=== PATIENT | female | born 1995 | race Caucasian/White ===

== ENCOUNTER 2016-10-25 10:42 | Emergency (ER) | payer OTHER | END 2016-10-25 11:49 | disposition left against medical advice (07) | LOC: UCCORT 10:42 | DX: R05 Cough (principal); H92.09 Otalgia, unspecified ear; Z53.29 Procedure and treatment not carried out because of patient's decision for other reasons ==

== ENCOUNTER 2016-10-25 12:58 | Emergency (ER) | payer OTHER ==
[2016-10-25 16:23] VITALS: BP 134/72
--- NOTE | 2016-10-25 16:37 | UC ---
Respiratory Complaint HPI - HPI Summary HPI Summary: URI for 1 week now has bilateral ear pain and sinus pain and congestion - History of Current Complaint Chief Complaint: UCEar Stated Complaint: COUGH,EARS,VOMITING Time Seen by Provider: 10/25/16 16:28 Hx Obtained From: Patient Hx Last Menstrual Period: 10/24/16 ?: No Onset/Duration: Gradual Onset, Lasting Days - 7 Timing: Constant Severity Initially: Mild Severity Currently: Moderate Pain Intensity: 6 Pain Scale Used: 0-10 Numeric Character: Cough: Nonproductive Alleviating Factors: OTC Meds Associated Signs And Symptoms: Positive: URI, Nasal Congestion, Sinus Discomfort - Allergies/Home Medications Allergies/Adverse Reactions: Allergies Allergy/AdvReac Type Severity Reaction Status Date / Time Benzonatate [From Tessalon] Allergy Severe throat Verified 10/25/16 16:24 closes PMH/Surg Hx/FS Hx/Imm Hx Previously Healthy: Yes Endocrine History Of: Denies: Diabetes - Surgical History Surgical History: Yes Surgery Procedure, Year, and Place: hernia repair - Family History Known Family History: Positive: Hypertension - Social History Occupation: Employed Full-time - [employer] Lives: With Family Alcohol Use: Rare Substance Use Type: None Smoking Status (MU): Current Every Day Smoker Type: Cigarettes Amount Used/How Often: 1/2 PPD Length of Time of Smoking/Using Tobacco: started age 14 Have You Smoked in the Last Year: Yes Household Exposure Type: Cigarettes Cessation Counseling: Counseled 3+Min - 10 Min Review of Systems Constitutional: Fatigue Skin: Negative Eyes: Negative ENT: Sore Throat, Ear Ache, Nasal Discharge Respiratory: Cough Cardiovascular: Negative Gastrointestinal: Negative Genitourinary: Negative Motor: Negative Neurovascular: Negative Musculoskeletal: Negative Neurological: Negative Psychological: Negative All Other Systems Reviewed And Are Negative: Yes Physical Exam Triage Information Reviewed: Yes Appearance: Well-Nourished, Ill-Appearing - mild, Pain Distress - mild Vital Signs: Initial Vital Signs Temp 97.9 F 10/25/16 16:18 Pulse 84 10/25/16 16:18 Resp 16 10/25/16 16:18 BP 134/72 10/25/16 16:18 Pulse Ox 95 10/25/16 16:18 Vital Signs Reviewed: Yes Eye Exam: Normal Eyes: Positive: Conjunctiva Clear ENT Exam: Normal ENT: Positive: Hearing grossly normal, Pharynx normal, Nasal congestion, Nasal drainage, TMs normal - right, TM bulging - left. Negative: Tonsillar swelling, Tonsillar exudate, Trismus, Muffled/hoarse voice Neck exam: Normal Neck: Positive: Supple, Nontender, No Lymphadenopathy Respiratory Exam: Normal Respiratory: Positive: Chest non-tender, Lungs clear, Normal breath sounds, No respiratory distress, No accessory muscle use Cardiovascular Exam: Normal Cardiovascular: Positive: RRR, No Murmur, Pulses Normal, Brisk Capillary Refill Musculoskeletal Exam: Normal Musculoskeletal: Positive: Strength Intact, ROM Intact, No Edema Neurological Exam: Normal Neurological: Positive: Alert, Muscle Tone Normal Psychological Exam: Normal Skin Exam: Normal UC Diagnostic Evaluation - Laboratory O2 Sat by Pulse Oximetry: 95 Respiratory Course/Dx - Course Course Of Treatment: Amoxicillin, Ibuprofen, flonase, increase fluids, follow with pcp re-check prn - Differential Dx/Diagnosis Differential Diagnosis/HQI/PQRI: Asthma, Influenza, Lower Resp Infection, Sinusitis Provider Diagnoses: Sinusitis Discharge - Discharge Plan Condition: Stable Disposition: HOME Prescriptions: Amoxicillin (*) 875 mg PO BID #20 tab Fluticasone NASAL SPRAY 50MCG* [Flonase NASAL SPRAY 50MCG*] 2 spray BOTH NARES DAILY #1 btl Patient Education Materials: Fluticasone (Into the nose), Amoxicillin (By mouth ), How to Use Nasal [place] (ED), Upper Respiratory Infection (ED) Forms: *Work Release Referrals: Non Staff,Doctor [Primary Care Provider] - [facility] [Outside]
== END 2016-10-25 16:54 | disposition home or self-care (01) ==
LOC: UCCORT 12:58
DX: J32.9 Chronic sinusitis, unspecified (principal); F17.210 Nicotine dependence, cigarettes, uncomplicated; Z88.8 Allergy status to other drugs, medicaments and biological substances
CPT/HCPCS: 99212; G0463

== ENCOUNTER 2017-05-14 21:03 | Emergency (ER) | payer SELFPAY ==
[2017-05-14 21:22] VITALS: BP 138/75
[2017-05-14] MEDS ORDERED: Famotidine TAB* 20 MG PO ONE (21:38)
[2017-05-14] MEDS ORDERED: diPHENhydraMINE PO* 50 MG PO ONE (21:38)
[2017-05-14] MEDS ORDERED: methylPREDNISolone 125 MG* 2 ML VIAL IM ONE (21:38)
--- NOTE | 2017-05-14 21:50 | UC ---
Skin Complaint HPI - HPI Summary HPI Summary: THREE DAYS AGO HAD MILD HEADACHES AND BODY ACHES, SYMPTOMS RESOLVED; 45 MINUTES AGO DEVELOPED SUDDEN BILATERAL DIFFUSE SPOTTED RASH ON TORSO AND BUTTOCKS. NO FEVER. NO RECENT TICK BITES. NO NEW MEDICATION. NO SORE THROAT. NO WEAKNESS. NO LYMPH NODE ENLARGEMENT. NO THROAT TIGHTENING. NO SOB. NO NEW FOODS. NO NEW DETERGENTS. NO NEW PLANT OR PET EXPOSURE. WORKS IN GROUP HOME. NO COUGH. - History of Current Complaint Chief Complaint: UCSkin Time Seen by Provider: 05/14/17 21:29 Stated Complaint: RASH Hx Obtained From: Patient Hx Last Menstrual Period: 05/12/17 Onset/Duration: Sudden Onset, Lasting Minutes, Still Present Skin Exposure Onset/Duration: Minutes Ago Onset Severity: Mild Current Severity: Moderate Location: Diffuse - TORSO AND BUTTOCKS Character: Pruritus, Redness, Raised Aggravating: Nothing Alleviating: Nothing Associated Signs & Symptoms: Positive: Rash. Negative: Nausea, Vomiting, Numbness, Fever, Chills, Cough, Chest Pain, Hoarseness, Throat Tightening, Syncope, Drainage, Bruising, Tenderness, Red Streaks Related History: Possible Reaction to: Food, Possible Reaction to: Environmental Exposure, Closed Enviornment - Allergy/Home Medications Allergies/Adverse Reactions: Allergies Allergy/AdvReac Type Severity Reaction Status Date / Time Benzonatate [From Tessalon] Allergy Severe throat Verified 05/14/17 21:12 closes Home Medications: Home Medications Levonorgestrel (Iud) [Mirena IUD] 20 mcg IU ONCE 05/14/17 [History Confirmed ] Review of Systems Constitutional: Negative Skin: Rash Eyes: Negative ENT: Negative Respiratory: Negative Cardiovascular: Negative Gastrointestinal: Negative Genitourinary: Negative Motor: Negative Neurovascular: Negative Musculoskeletal: Negative Neurological: Negative Psychological: Negative All Other Systems Reviewed And Are Negative: Yes PMH/Surg Hx/FS Hx/Imm Hx Previously Healthy: Yes - Surgical History Surgical History: Yes Surgery Procedure, Year, and Place: hernia repair - Family History Known Family History: Positive: Hypertension - Social History Occupation: Employed Full-time Lives: With Family Alcohol Use: Occasionally Substance Use Type: None Smoking Status (MU): Current Every Day Smoker Type: Cigarettes Amount Used/How Often: 1/2 PPD Length of Time of Smoking/Using Tobacco: started age 14 Have You Smoked in the Last Year: Yes Household Exposure Type: Cigarettes Cessation Counseling: Patient Advised to Stop Physical Exam Triage Information Reviewed: Yes Appearance: Well-Appearing, No Pain Distress, Well-Nourished Vital Signs: Initial Vital Signs Temp 98.4 F 05/14/17 21:07 Pulse 88 05/14/17 21:07 Resp 15 05/14/17 21:07 BP 138/75 05/14/17 21:07 Pulse Ox 99 05/14/17 21:07 Vital Signs Reviewed: Yes Eye Exam: Normal ENT Exam: Normal ENT: Positive: Normal ENT inspection, Hearing grossly normal, Pharynx normal, TMs normal Dental Exam: Normal Neck exam: Normal Neck: Positive: Supple, Nontender, No Lymphadenopathy Respiratory Exam: Normal Respiratory: Positive: Chest non-tender, Lungs clear, Normal breath sounds, No respiratory distress, No accessory muscle use Cardiovascular Exam: Normal Cardiovascular: Positive: RRR, No Murmur, Pulses Normal, Brisk Capillary Refill Abdominal Exam: Normal Abdomen Description: Positive: Nontender, No Organomegaly Musculoskeletal Exam: Normal Musculoskeletal: Positive: Strength Intact, ROM Intact Neurological Exam: Normal Skin: Positive: rashes - DIFFUSE ON BILATERAL FLANKS OF TORSO AND BUTTOCKS ERRYTHEMATOUS MACULAR RASH WITH LESIONS AVERAGE 1CM X 1CM Course/Dx - Course Course Of Treatment: PATIENT ADVISED TO SEEK CARE AT ED IF NEW SYMPTOMS DEVELOP ; ADVISED TO FOLLOW UP AT DERM IF SYMPTOMS CONTINUE AFTER 3 DAYS - Differential Diagnoses - Skin Complaint Differential Diagnoses: Contact Dermatitis, Drug Rash, Electrolyte Abnormality, Endocrine Abnormality, Erythema Nodosum, Local Allergic Reaction, Scabies, [place], Systemic Illness, Tick Born Illness, Tinea, Viral Exanthem, VRE - Diagnoses Provider Diagnoses: CONTACT DERMATITIS Discharge - Discharge Plan Condition: Stable Disposition: HOME Prescriptions: predniSONE TAB* [Deltasone TAB*] 10 mg PO DAILY #28 tab Patient Education Materials: Contact Dermatitis (ED) Forms: *Work Release Referrals: [facility] [[facility]] Rosalia Munoz [Medical Doctor] - Non Staff,Doctor [Primary Care Provider] - Images Front/Back of Body, Lg (Weld): 1 - DIFFUSE ON BILATERAL FLANKS OF TORSO AND BUTTOCKS ERRYTHEMATOUS MACULAR RASH WITH LESIONS AVERAGE 1CM X 1CM 2 - DIFFUSE ON BILATERAL FLANKS OF TORSO AND BUTTOCKS ERRYTHEMATOUS MACULAR RASH WITH LESIONS AVERAGE 1CM X 1CM 3 - DIFFUSE ON BILATERAL FLANKS OF TORSO AND BUTTOCKS ERRYTHEMATOUS MACULAR RASH WITH LESIONS AVERAGE 1CM X 1CM 4 - DIFFUSE ON BILATERAL FLANKS OF TORSO AND BUTTOCKS ERRYTHEMATOUS MACULAR RASH WITH LESIONS AVERAGE 1CM X 1CM
== END 2017-05-14 21:59 | disposition home or self-care (01) ==
LOC: UCCORT 21:03
DX: Z72.0 Tobacco use (principal); L25.9 Unspecified contact dermatitis, unspecified cause
CPT/HCPCS: 96372; 99212; A9270-GY; G0463; J2930

== ENCOUNTER 2017-10-12 10:24 | Emergency (ER) | payer SELFPAY ==
--- OUTSIDE RECORDS SUMMARY | 2017-10-12 10:57 | XMS REPORT ---
:1995 External Reference #:[id number] Author Organization [facility] Address [address] [place] [address] Phone [phone] Care Team Providers Name Role Phone Billy Wagoner PA Care Team Information Lab Scientist Unavailable Payers Type Date Identification Numbers Payment Provider Subscriber Commercial Effective: Policy Number: [id number] [facility] [place] 2017 PayID: [id number] [address] [place] [address] [facility] Policy Number: [id number] Medicaid/[employer] [place] PayID: [id number] [address] [place] [address] Problems Description No Information Family History Date Family Member(s) Problem(s) Comments General No Current Problems Father No Current Problems Mother No Current Problems Children 2 Siblings 5 Social History Type Date Description Comments Marital Status Legal Status: Never Work Status Part-Time Employment ETOH Use Occasionally consumes alcohol Smoking Light tobacco smoker (10 or fewer cigarettes/day) Recreational Drug Use Denies Drug Use Daily Caffeine Consumes on average 1 cup of regular coffee per day Allergies, Adverse Reactions, Alerts Date Description Reaction Status Severity Comments 08/18/2017 NKDA active Medications Medication Date Status Form Strength Qnty SIG Indications Ordering Provider Sertraline HCL 09/16/19 Active Tablets 50mg 30tabs take one F33.9 Rafat , 18 tablet by Aury Ashton mouth one M.D. time daily F41.9 Diclofenac 08/18/[address] 75mg 60tabs 1 by mouth S22.41xA Rafat, Sodium twice a Ahmad M., day as M.D. needed S70.11xA Cyclobenzaprine HCL 08/18/2017 Active Tablets 10mg 90tabs 1 tab by S22.41xA Rafat, mouth Ahmad M., three M.D. times a day as needed S70.11xA Fluticasone Active Suspension 50mcg/Act instill 2 J30.9 Unknown Propionate sprays into each nostril once daily Sertraline HCL 08/18/2017 - Hx Tablets 25mg 30t 1 Tab PO F33.9 Rafat, 09/16/2017 abs Daily Aury Ashton M.D. F41.9 Amoxicillin - 08/18/2017 Hx Tablets 875mg take 1 tablet by Unknown mouth twice a day Vital Signs Date Vital Result Comment 09/16/2017 BP Systolic 114 mmHg BP Diastolic 62 mmHg Height 64 inches 5'4" Weight 177.00 lb BMI (Body Mass Index) 30.4 kg/m2 Heart Rate 91 /min Respiratory Rate 16 /min 08/18/2017 BP Systolic 116 mmHg BP Diastolic 60 mmHg Height 64 inches 5'4" Weight 184.00 lb BMI (Body Mass Index) 31.6 kg/m2 Heart Rate 119 /min Body Temperature 97.4 F Respiratory Rate 16 /min Results Description No Information Procedures Date CPT Code Description Status 08/18/2017 96856 Audiometry, Bekesy, Screening Completed Encounters Type Date Location Provider CPT E/M Dx Office Visit 09/16/2017 11:00[place] [address] F33.9 F41.9 S22.41xA V89.2xxS J30.9 L20.9 S70.11xA F17.200 H53.30 E66.01 Office Visit 08/18/2017 9:00[place] [address] F33.9 F41.9 S22.41xA V89.2xxS J30.9 L20.9 S70.11xA Z00.01 F17.200 H53.30 E66.01 Z68.31 Plan of Care Future Appointment(s):10/17/2017 1:45 pm - Billy Wagoner PA at [facility]
[2017-10-12 11:54] VITALS: BP 127/62
--- NOTE | 2017-10-12 12:10 | UC ---
Respiratory Complaint HPI - HPI Summary HPI Summary: Pt c/o fever, nasal congestion, cough, "burning chest" generalized malaise X 2 weeks. - History of Current Complaint Chief Complaint: UCGeneralIllness Stated Complaint: EAR PAIN,CHEST CONGESTION Time Seen by Provider: 10/12/17 12:02 Hx Obtained From: Patient Hx Last Menstrual Period: mirena ?: No Onset/Duration: Gradual Onset, Lasting Weeks - 2, Still Present, Worse Since - onset Timing: Constant Severity Initially: Mild Severity Currently: Mild Pain Intensity: 0 Character: Cough: Nonproductive Aggravating Factors: Exertion, Deep Breaths, Recumbent Position Alleviating Factors: Nothing Associated Signs And Symptoms: Positive: Fever, Chills, Wheezing, URI, Nasal Congestion - Risk Factors Pulmonary Embolism Risk Factors: Estrogen - Mirena, Smoking Cardiac Risk Factors: Smoking Pseudomonas Risk Factors: Negative Tuberculosis Risk Factors: Smoking - Allergies/Home Medications Allergies/Adverse Reactions: Allergies Allergy/AdvReac Type Severity Reaction Status Date / Time Benzonatate [From Tessalon] Allergy Severe throat Verified 10/12/17 11:54 closes PMH/Surg Hx/FS Hx/Imm Hx Previously Healthy: Yes - Surgical History Surgical History: Yes Surgery Procedure, Year, and Place: hernia repair - Family History Known Family History: Positive: Hypertension - Social History Occupation: Employed Full-time Lives: With Family Alcohol Use: Rare Substance Use Type: None Smoking Status (MU): Current Every Day Smoker Type: Cigarettes Amount Used/How Often: 1/2 PPD Length of Time of Smoking/Using Tobacco: started age 14 Have You Smoked in the Last Year: Yes Household Exposure Type: Cigarettes - Immunization History Vaccination Up to Date: No Review of Systems Constitutional: Fever, Chills, Fatigue Skin: Negative Eyes: Negative ENT: Sinus Congestion Respiratory: Shortness Of Breath - with exertion, Cough Cardiovascular: Negative Gastrointestinal: Negative Genitourinary: Negative Motor: Negative Neurovascular: Negative Musculoskeletal: Myalgia Neurological: Headache Psychological: Negative Is Patient Immunocompromised?: No All Other Systems Reviewed And Are Negative: Yes Physical Exam Triage Information Reviewed: Yes Appearance: Well-Appearing Vital Signs: Initial Vital Signs Temp 98.5 F 10/12/17 11:50 Pulse 85 10/12/17 11:50 Resp 20 10/12/17 11:50 BP 127/62 10/12/17 11:50 Pulse Ox 100 10/12/17 11:50 Vital Signs Reviewed: Yes Eye Exam: Normal ENT Exam: Other ENT: Positive: Nasal congestion Dental Exam: Normal Neck exam: Normal Respiratory Exam: Other Respiratory: Positive: Rhonchi - mild Cardiovascular Exam: Normal Musculoskeletal Exam: Normal Neurological Exam: Normal Psychological Exam: Normal Skin Exam: Normal UC Diagnostic Evaluation - Laboratory O2 Sat by Pulse Oximetry: 100 Respiratory Course/Dx - Differential Dx/Diagnosis Differential Diagnosis/HQI/PQRI: Bronchitis, Influenza, Pulmonary Embolism Provider Diagnoses: Bronchitis Discharge - Discharge Plan Condition: Stable Disposition: HOME Prescriptions: Azithromycin TAB* [Zithromax TAB (Z-MINDI) 250 mg #6 tabs] 2 tab PO .TODAY, THEN 1 DAILY #1 mindi predniSONE TAB* [Deltasone TAB*] 30 mg PO DAILY #9 tab Pseudoephedrine-Guaifenesin [Mucinex D 60-600 mg] 1 tab PO DAILY #5 tab Patient Education Materials: Acute Bronchitis (ED) Referrals: Non Staff,Doctor [Primary Care Provider] - If Needed
== END 2017-10-12 12:17 | disposition home or self-care (01) ==
LOC: UCCORT 10:24
DX: J40 Bronchitis, not specified as acute or chronic (principal); Z88.8 Allergy status to other drugs, medicaments and biological substances; F17.210 Nicotine dependence, cigarettes, uncomplicated
CPT/HCPCS: 99212; G0463

== ENCOUNTER 2019-01-30 18:57 | Emergency (ER) | payer SELFPAY ==
--- OUTSIDE RECORDS SUMMARY | 2019-01-30 19:10 | XMS REPORT | Continuity of Care Document ---
:1995 External Reference #:[id number] Author Name Melanie Zamora NP Address [address] [place] [address] Care Team Providers Name Role Phone Yes Primary Care Physician Unavailable Payers Date Identification Numbers Payment Provider Subscriber Effective: 2018 Policy Number: [id number] [facility] [employer] Name: [place]/Managed Medicaid [address] PayID: [id number] [place] [address] Policy Number: [id number] Medicaid -[place]rin [place] PayID: [id number] [address] [place] [id number] Expires: 2017 Policy Number: [id number] Medicaid Pe ([facility]) [place] PayID: [id number] [address] [place] [id number] Family History Date Family Member(s) Observation Comments Father Alive Mother Alive Social History Type Date Description Comments Sex Female Education 9th grade Marital Status Legal Status: Never Work Status Full-Time Employment Tobacco Use Reviewed: Never Smoked Cigars 01/27/19 Tobacco Use Reviewed: Never Smoked A Pipe 01/27/19 Smoking Status Reviewed: Never Smoked A Pipe 01/27/19 Tobacco Use Reviewed: Never Used Smokeless 01/27/19 Tobacco Tobacco Use Reviewed: Light tobacco smoker (10 01/27/19 or fewer cigarettes/day) Tattoo/Piercing Tattoo all professionally done. Tattoo/Piercing Pierced ears Sun Exposure Does not use sunscreen Contraceptive Methods Past methods include ; Nuva Ring depo-provera injection Contraceptive Methods 01/27/2019 Past methods include levonorgestrel IUD Contraceptive Methods Past methods include oral contraceptives Contraceptive Methods Past methods include Nexplanon Age 1st Callender 15 Years Old STD's Chlamydia 11/27/11 UNKNOWN 01/27/2019 Never E-Cigarette user Allergies, Adverse Reactions, Alerts Description No Known Drug Allergies Medications Active Medications SIG Qnty Indications Ordering Provider Date Metronidazole one tab by 14tabs N76.0 Melanie Zamora, 01/27/2019 500mg Tablets mouth twice SEGMENT PRODUCER daily x 7 days no etoh Ortho Tri-Cyclen Lo 1 by mouth 84tabs Z30.011 Melanie Zamora, 03/13/2018 every day SEGMENT PRODUCER 0.18/0.215/0.25 mg-25 mcg Tablets Womens Daily Formula Unknown History Medications Mirena (52 MG) one device Melanie Zamora, 03/13/2018 - intrauterine SEGMENT PRODUCER 01/27/2019 20mcg/24HR IUD Macrobid one capsule by 14caps N39.0 Melanie Zamora, 03/13/2018 - 100mg mouth twice a day x SEGMENT PRODUCER 01/27/2019 Capsules 7 days Vitamin one tablet per day 90tabs Z31.69 Melanie Zamora, 2017 - SEGMENT PRODUCER 01/27/2019 Tablets No Active Unknown 11/20/2017 - Medications 11/20/2017 Metronidazole one tab by mouth 14tabs N76.0 Melanie Zamora, 11/20/2017 - 500mg twice daily x 7 SEGMENT PRODUCER 03/13/2018 Tablets days no etoh No Active Unknown 11/03/2014 - Medications 11/03/2014 Metronidazole 1 tab by mouth 14tabs 616.10 Zehra Moeller, SEGMENT PRODUCER 11/03/2014 - 500mg twice a day 11/20/2017 Tablets Medications Administered in Office Medication SIG Qnty Indications Ordering Provider Date Plan B One-Step take one tab 1tabs Z30.012 Melanie Zamora, GELY 01/27/2019 1.5mg today Tablets Plan B One-Step take one tab 1tabs Z30.012 Melanie Zamora, GELY 03/13/2018 1.5mg today Tablets Contraceptive Pills Melanie Zamora, GELY 03/13/2018 Control Injection Emergency Contraceptive Melanie Zamora, GELY 03/13/2018 Injection Vital Signs Date Vital Result Comment 01/27/2019 1:23pm Height 64 inches 5'4" Weight 183.00 lb BMI (Body Mass Index) 31.4 kg/m2 03/13/2018 12:05pm BP Systolic 120 mmHg BP Diastolic 80 mmHg Height 65 inches 5'5" Weight 188.00 lb BMI (Body Mass Index) 31.3 kg/m2 11/20/2017 11:53am BP Systolic 120 mmHg BP Diastolic 71 mmHg Height 65 inches 5'5" Weight 182.00 lb BMI (Body Mass Index) 30.3 kg/m2 11/03/2014 10:42am BP Systolic 100 mmHg BP Diastolic 70 mmHg Height 65 inches 5'5" Weight 172.00 lb BMI (Body Mass Index) 28.6 kg/m2 Last Menstrual Period [id number] Results Test Date Facility Test Result H/L Range Note Laboratory test 01/27/2019 [facility] Test neg finding Urine..... Wet Prep.... 01/27/2019 [facility] WBC Smear 0 Clue Cells Vag Fluid Wet Prep many Priyanka Wet Prep few Lactobacillus Wet Prep few Whiff Wet Prep neg. Bacteria Wet Prep n/a PH Wet Prep 7.5 Misc Other Test no trich seen [facility] GN24 Susceptibility 03/13/2018 [facility] Amoxicillin/Clavulanic Acid S (< =2) Org 1 Ampicillin S (<=2) Ampicillin/Sulbact S (<=2) Cefepime S (<=1) Ceftazidime S (<=1) Ceftriaxone S (<=1) Ciprofloxacin S (<=0.25) Ertapenem S (<=0.5) Gentamicin S (<=1) Imipenem S (<=0.25) Levofloxacin S (<=0.12) Nitrofurantoin S (<=16) Piperacillin/Tazobactam S (<=4) Tobramycin S (<=1) Trimethoprim/Sulfa S (<=20) 1 Chlamydia/N 03/13/[address] [facility] [address],Rna,Tma,Urogenital NOT DETECTED Not Detected 2 Gonorroeae Rna Tma Urogenit GC Rna,Tma,Urogen NOT DETECTED Not Detected 3 Urinalysis DIP Only.... 03/13/2018 [facility] Urine Leukocyte Esterase QN + Urine Nitrite QN + Urine Blood N Urine PH 5.0 Urine Protein Random N Urine Ketone Random N Urine Glucose QN Random N Culture,Urine,Voided 03/13/2018 [facility] URINE Preliminary Report SEE NOTE 4 Organism #1 SEE NOTE Abnormal 5 Wet Prep.... 03/13/2018 [facility] WBC Smear 0 Clue Cells Vag Fluid Wet Prep 0 Priyanka Wet Prep 0 Lactobacillus Wet Prep few Whiff Wet Prep neg. Bacteria Wet Prep n/a PH Wet Prep 4.5 Misc Other Test no trich seen Wet Prep.... 11/20/2017 [facility] WBC Smear few Clue Cells Vag Fluid Wet Prep many Priyanka Wet Prep 0 Lactobacillus Wet Prep many Whiff Wet Prep + Bacteria Wet Prep n/a PH Wet Prep 7.5 Misc Other Test no trich seen Thinprep Pap Field Installation Technician 11/20/2017 [facility] Results neg./bv/no ez 6 W/RFX HPV HR Chlam 11/20/2017 [facility] C.Trachomatis NOT DETECTED Not Detected 7 Trach/Neisseria Rna,Tma Gonorroeae Rna Tma N.Gonorrhoeae Rna,Tma NOT DETECTED Not Detected 8 Urinalysis DIP Only.... 11/20/2017 [facility] Urine Leukocyte Esterase QN N Urine Nitrite QN N Urine Blood N Urine PH 7.5 Urine Protein Random N Urine Ketone Random N Urine Glucose QN Random N Laboratory test 11/03/2014 [facility] C.Trachomatis NOT DETECTED Not Detected 9 finding Rna,Tma W/RFX N.Gonorrhoeae Rna,Tma Wet Prep.... 11/03/2014 [facility] WBC Smear 6-10 Clue Cells Vag Fluid Wet Prep + Priyanka Wet Prep neg Lactobacillus Wet Prep neg Whiff Wet Prep + Bacteria Wet Prep ++ PH Wet Prep 5.0 [place] Annual Lab Set 11/03/2014 [facility] HGB Blood.... 15.4 Urinalysis DIP Only.... 11/03/2014 [facility] Urine Leukocyte Esterase QN + Urine Nitrite QN N Urine Blood N Urine PH 5 Urine Protein Random Tr Urine Ketone Random N Urine Glucose QN Random N 1 ( )=MINIMUM INHIBITORY CONCENTRATION IN MCG/ML 2 This test was performed using the APTIMA COMBO2(R) Assay (GEN-PROBE(R). The analytical performance characteristics of this assay, when used to test SurePath(R) specimens have been determined by [facility]. 3 This test was performed using the APTIMA COMBO2(R) Assay (GEN-PROBE(R). The analytical performance characteristics of this assay, when used to test SurePath(R) specimens have been determined by [facility]. 4 GRAM NEGATIVE BACILLI GREATER THAN 100,000 CFU/ML IDENTIFICATION AND SUSCEPTIBILITIES TO FOLLOW. 5 ESCHERICHIA COLI GREATER THAN 100,000 CFU/ML 6 GYNECOLOGICAL CYTOLOGY REPORT Thinprep TIS PAP w/rfx to HPV E6/E7 REPORT STATUS: FINAL CLINICAL INFORMATION: Routine exam SLIDES / SOURCE: 1 / Information not provided STATEMENT OF ADEQUACY: Satisfactory for evaluation. Endocervical/transformation zone component absent. INTERPRETATION/RESULT: Negative for intraepithelial lesion or malignancy. Shift in vaginal vivienne suggestive of bacterial vaginosis. COMMENT: This Pap test has been evaluated with computer assisted technology. TECHNICAL TRAINING COORDINATOR: LEXI GLASS(ASCP) For informational Purposes: All cytology specimens are processed and screened at [facility]. [address] [place] [id number] 7 This test was performed using the APTIMA COMBO2(R) Assay (GEN-PROBE(R). The analytical performance characteristics of this assay, when used to test SurePath(R) specimens have been determined by [facility]. 8 This test was performed using the APTIMA COMBO2(R) Assay (GEN-PROBE(R). The analytical performance characteristics of this assay, when used to test SurePath(R) specimens have been determined by [facility]. 9 This test was performed using the APTIMA COMBO2(R) Assay (GEN-PROBE(R). The analytical performance characteristics of this assay, when used to test SurePath(R) specimens have been determined by [facility]. Procedures Date Code Description Status 03/13/2018 80441 Remove Intrauterine Device Completed Encounters Type Date Location Provider Dx Diagnosis Office Visit 03/13/2018 MARIO Zamora NP Z30.431 Encounter for routine 12:00p checking of intrauterine contracep dev Z30.012 Encounter for prescription of emergency contraception Z30.011 Encounter for initial prescription of contraceptive pills Z31.69 Encounter for oth general coun and advice on procreation N39.0 Urinary tract infection, site not specified Z11.3 Encntr screen for infections w sexl mode of transmiss Z13.1 Encounter for screening for diabetes mellitus Z13.9 Encounter for screening, unspecified Z30.40 Encounter for surveillance of contraceptives, unspecified Z30.432 Encounter for removal of intrauterine contraceptive device Plan of Treatment Future Appointment(s):02/11/2019 10:30 am - SEGMENT PRODUCER at [facility]01/27/2019 - Melanie Zamora, NPZ30.012 Encounter for prescription of emergency contraceptionNew Medication:Plan B One-Step 1.5 mg - take one tab todayComments:UPIC yesterday. UPT negative today. Administered Plan B today in office. Reviewed use of, side effects and precautions with patient who states understanding. RTO in 2 weeks for UPT.Z30.41 Encounter for surveillance of contraceptive pillsComments: Patient to continue on ocp. Reviewed use of, side effects and precautions with patient who states understanding. Advised her to check the expiration date on her pills and to call if they are . She would really like an IUD. She is interested in the [facility]. Advised her to continue OCP and use condoms consistently x 2 weeks then she can RTO for UPT and possible IUD insertion.Follow up:2 weeks UPT in [place] lrgnnbbtdN96.22 Unspecified lump in the left breast, upper inner quadrantNew Xrays:US, Breast, Unilateral, Incl Axilla When Performed, Complete, Ordered: 01/27/19Comments:obtain a breast ultrasound to mretzckwC48.0 Acute vaginitisNew Medication:Metronidazole 500 mg - one tab by mouth twice daily x 7 days no etohComments:Multiple clue cells on wet prep. Rx metronidazole- reviewed use of, side effects and precautions ( including no etoh) with patient who states understanding. Instructed patient on pelvic rest x 2 weeks.Z32.02 Encounter for test, result qqkrmaxtH42.3 Encounter for screening for infections with a predominantlyNew Labs:Chlamydia/N Gonorroeae Rna Tma Urogenit, Ordered: 01/27/19Comments:Reviewed STD risks and prevention with patient. Patient states understanding.R21 Rash and other nonspecific skin eruptionNew Labs:Herpes Simplex Virus Culture W/RFX Type, Ordered: 01/27/19Comments:Likely healing acne. HSV cx obtained.Z12.4 Encounter for screening for malignant neoplasm of cervixNew Labs:Thinprep Pap Field Installation Technician W/ RFX HPV HR, Ordered: 01/27/19
--- NOTE | 2019-01-30 19:23 | UC ---
Throat Pain/Nasal Romel HPI - HPI Summary HPI Summary: C/O sore throat with headache x 3 days. No cough or congestion. No one else at home is sick - History of Current Complaint Chief Complaint: UCGeneralIllness Stated Complaint: SORE THROAT Time Seen by Provider: 01/30/19 19:12 Hx Obtained From: Patient Hx Last Menstrual Period: 12/28/18 ?: No Onset/Duration: Sudden Onset, Lasting Days - 3, Still Present Severity: Moderate Pain Intensity: 7 Cough: None Associated Signs & Symptoms: Positive: Dysphagia. Negative: Wheezing, Hoarseness, Sinus Discomfort, Vomiting - Allergies/Home Medications Allergies/Adverse Reactions: Allergies Allergy/AdvReac Type Severity Reaction Status Date / Time benzonatate Allergy Severe Airway Verified 01/30/19 19:13 Obstruction MS Benzonatate Allergy Severe throat Verified 01/30/19 19:13 [From Tessalon] closes Home Medications: Home Medications Oral Contraceptives DAILY 01/30/19 [History] metroNIDAZOLE * [Flagyl] 500 mg PO BID 01/30/19 [History Confirmed 01/30/19] PMH/Surg Hx/FS Hx/Imm Hx Previously Healthy: Yes - Surgical History Surgical History: Yes Surgery Procedure, Year, and Place: hernia repair - Family History Known Family History: Positive: Hypertension, Diabetes - Social History Occupation: Employed Full-time Lives: With Family Alcohol Use: Rare Substance Use Type: None Smoking Status (MU): Current Every Day Smoker Type: Cigarettes Amount Used/How Often: 1/2 PPD Length of Time of Smoking/Using Tobacco: started age 14 Have You Smoked in the Last Year: Yes Household Exposure Type: Cigarettes - Immunization History Vaccination Up to Date: No Review of Systems All Other Systems Reviewed And Are Negative: Yes ENT: Positive: Sore Throat Gastrointestinal: Positive: Nausea - on metronidazole Is Patient Immunocompromised?: No Physical Exam Triage Information Reviewed: Yes Appearance: Well-Appearing, No Pain Distress, Well-Nourished Vital Signs: Initial Vital Signs Temp 97.9 F 01/30/19 19:09 Pulse 69 01/30/19 19:09 Resp 24 01/30/19 19:09 BP 110/64 01/30/19 19:09 Pulse Ox 100 01/30/19 19:09 Vital Signs Reviewed: Yes Eyes: Positive: Conjunctiva Clear ENT: Positive: Pharyngeal erythema, TMs normal, Tonsillar exudate - just on the right Neck exam: Normal Respiratory Exam: Normal Cardiovascular Exam: Normal Abdomen Description: Positive: Nontender, No Organomegaly, Soft Musculoskeletal Exam: Normal Neurological Exam: Normal Psychological Exam: Normal Skin Exam: Normal Throat Pain/Nasal Course/Dx - Differential Dx/Diagnosis Differential Diagnosis/HQI/PQRI: Peritonsillar Abscess, Pharyngitis, Tonsillitis , URI Provider Diagnosis: Acute pharyngitis Discharge - Sign-Out/Discharge Documenting (check all that apply): Patient Departure All imaging exams completed and their final reports reviewed: No Studies - Discharge Plan Condition: Stable Disposition: HOME Patient Education Materials: Pharyngitis (ED) Referrals: No Primary Care Phys,NOPCP [Primary Care Provider] - Additional Instructions: Smoking Cessation Tricks. 1. Cut down by 1 cigarette per day every 2-3 days. Write the number of smokes for that day on the calendar. 2. Identify triggers to smoking: after meals, on the phone, in the car, with coffee, on breaks at work, etc. 3. Formulate a plan with a behavior to replace the smoking. Fireballs in the car , doodle pad on the phone, flavored creamer for the coffee, go for a walk after a meal or on break at work. 4. For stress smokes do deep breathing relaxation. Breath deep in through the nose hold the breath in for a few seconds then breath out slowly through the mouth. - Billing Disposition and Condition Condition: STABLE Disposition: Home
[2019-01-30 19:32] VITALS: BP 110/64
== END 2019-01-30 19:30 | disposition home or self-care (01) ==
LOC: UCCORT 18:57
DX: J02.9 Acute pharyngitis, unspecified (principal); F17.210 Nicotine dependence, cigarettes, uncomplicated; Z88.8 Allergy status to other drugs, medicaments and biological substances
CPT/HCPCS: 87651; 99211; G0463

== ENCOUNTER 2019-08-10 21:10 | Emergency (ER) | payer OTHER ==
--- NOTE | 2019-08-10 21:15 | UC ---
Throat Pain/Nasal Romel HPI - HPI Summary HPI Summary: 24 yo female presents with sinus symptoms. She tells me that for the past 2 weeks she has had a "cold" consisting a runny nose with sinus congestion and a dry cough. Over the last 5 days has had increased congestion and sinus pressure worsening on her left frontal and maxillary sinus. She has been taking ibuprofen and OTC cold medicine with little relief. She is still smoking daily. Denies fever, chills, SOB, n/v. - History of Current Complaint Stated Complaint: SINUS COMPLAINT Time Seen by Provider: 08/10/19 21:14 Hx Obtained From: Patient Hx Last Menstrual Period: 12/28/18 Onset/Duration: Gradual Onset Severity: Moderate Pain Intensity: 7 Pain Scale Used: 0-10 Numeric - Allergies/Home Medications Allergies/Adverse Reactions: Allergies Allergy/AdvReac Type Severity Reaction Status Date / Time benzonatate Allergy Severe Airway Verified 08/10/19 21:26 Obstruction MS Benzonatate Allergy Severe throat Verified 08/10/19 21:26 [From [email or web address]] closes Home Medications: Home Medications Levonorgestrel (Iud) [Mirena IUD] 0 mcg 08/10/19 [History] Otc Sinus Med ?Name PRN 08/10/19 [History] PMH/Surg Hx/FS Hx/Imm Hx - Additional Past Medical History Additional PMH: None - Surgical History Surgical History: Yes Surgery Procedure, Year, and Place: hernia repair - Family History Known Family History: Positive: Hypertension, Diabetes - Social History Lives: With Family Alcohol Use: Rare Substance Use Type: None Smoking Status (MU): Current Every Day Smoker Type: Cigarettes Amount Used/How Often: 1/2 PPD Length of Time of Smoking/Using Tobacco: started age 14 Have You Smoked in the Last Year: Yes Household Exposure Type: Cigarettes - Immunization History Vaccination Up to Date: No Review of Systems All Other Systems Reviewed And Are Negative: No Constitutional: Positive: Negative Skin: Positive: Negative Eyes: Positive: Negative ENT: Positive: Nasal Discharge, Sinus Congestion, Sinus Pain/Tenderness Respiratory: Positive: Cough Cardiovascular: Positive: Negative Neurological: Positive: Negative Psychological: Positive: Negative Physical Exam - Summary Physical Exam Summary: GENERAL: NAD. WDWN. No pain distress. SKIN: No rashes, sores, lesions, or open wounds. HEENT: Head: AT/NC Eyes: EOM intact. Conjunctiva clear without inflammation or discharge. Ears: Hearing grossly normal. TMs intact, no bulging, erythema, or edema. Nose: Nasal mucosa mildly swollen and erythematous with yellow/ clear discharge. TTP maxillary and frontal sinus worse on left. Positive post nasal drip Throat: Posterior oropharynx without exudates, erythema, or tonsillar enlargement. Uvula midline. NECK: Supple. Nontender. No lymphadenopathy. CHEST: Mild wheezing throughout. No r/r. No accessory muscle use. Breathing comfortably and in no distress. CV: RRR. Pulses intact. NEURO: Alert. PSYCH: Age appropriate behavior. Triage Information Reviewed: Yes Vital Signs: Vital Signs: Temp Pulse Resp BP Pulse Ox 98.2 F 79 20 124/78 98 08/10/19 21:28 08/10/19 21:28 08/10/19 21:28 08/10/19 21:28 08/10/19 21:28 Vital Signs Reviewed: Yes Throat Pain/Nasal Course/Dx - Course Course Of Treatment: Sinusitis and bronchitis. In the clinic she was given her first dose of azithromycin and dispensed an albuterol inhaler to use 1 puff q6h prn wheezing. - Differential Dx/Diagnosis Provider Diagnosis: Sinusitis, Acute bronchitis Discharge ED - Sign-Out/Discharge Documenting (check all that apply): Patient Departure All imaging exams completed and their final reports reviewed: No Studies - Discharge Plan Condition: Stable Disposition: HOME Prescriptions: Azithromycin TAB* [Zithromax TAB (Z-MINDI) 250 mg #6 tabs] 2 tab PO .TODAY, THEN 1 DAILY #1 mindi Patient Education Materials: Sinusitis (ED), Acute Bronchitis (ED) Referrals: No Primary Care Phys,NOPCP [Primary Care Provider] - Additional Instructions: If you develop a fever, shortness of breath, chest pain, new or worsening symptoms - please call your PCP or go to the ED immediately. - Billing Disposition and Condition Condition: STABLE Disposition: Home
--- OUTSIDE RECORDS SUMMARY | 2019-08-10 21:15 | XMS REPORT | Continuity of Care Document ---
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 Problems Description No Active Problems Social History Type Date Description Comments Sex Female Tobacco Use Reviewed: Never Smoked Cigars 01/27/19 Tobacco Use Reviewed: Never Smoked A Pipe 01/27/19 Smoking Status Reviewed: Never Smoked A Pipe 01/27/19 Tobacco Use Reviewed: Never Used Smokeless 01/27/19 Tobacco ETOH Use Rarely consumes alcohol Tobacco Use Reviewed: Light tobacco smoker 01/27/19 (10 or fewer cigarettes/day) Recreational Drug Use Denies Drug Use Recreational Drug Use Teaching provided regarding Naloxone/Narcan Training Available At [facility] Tattoo/Piercing Tattoo all professionally done. Tattoo/Piercing Pierced ears Sun Exposure Does not use sunscreen Allergies, Adverse Reactions, Alerts Description No Known Drug Allergies Medications Active Medications SIG Qnty Indications Ordering Provider Date Metronidazole one tab by 14tabs N76.0 Melanie Zamora, 06/15/2019 500mg Tablets mouth twice MAC DEVELOPER daily x 7 days no etoh Liletta (52 MG) Z30.430 Melanie Zamora, 02/11/2019 19.5mcg/Day MAC DEVELOPER IUD Womens Daily Formula Unknown History Medications Metronidazole one tab by 14tabs N76.0 Melanie Zamora NP 01/27/2019 - 500mg mouth twice 02/11/2019 Tablets daily x 7 days no etoh Medications Administered in Office Medication SIG Qnty Indications Ordering Provider Date Plan B One-Step take one tab 1tabs Z30.012 Melanie Zamora NP 01/27/2019 1.5mg today Tablets Emergency Contraceptive Melanie Zamora NP 01/27/2019 Injection Contraceptive Pills Melanie Zamora, GELY 03/13/2018 Control Injection Emergency Contraceptive Melanie Zamora, GELY 03/13/2018 Injection Immunizations Description No Information Available Vital Signs Date Vital Result Comment 06/15/2019 12:03pm BP Systolic 116 mmHg BP Diastolic 64 mmHg Weight 180.00 lb 02/11/2019 10:41am BP Systolic 109 mmHg BP Diastolic 82 mmHg BP Systolic Recheck 137 mmHg post procedure BP Diastolic Recheck 82 mmHg post procedure Height 64 inches 5'4" Weight 178.00 lb BMI (Body Mass Index) 30.6 kg/m2 Results Test Date Facility Test Result H/L Range Note Wet Prep.... 06/15/2019 [facility] WBC Smear 0 Clue Cells Vag Fluid Wet Prep many Priyanka Wet Prep 0 Lactobacillus Wet Prep few Whiff Wet Prep + Bacteria Wet Prep n/a PH Wet Prep 4.5 Misc Other Test no trich seen Laboratory test 02/11/2019 [facility] Test Negative finding Urine..... Thinprep Pap 01/27/2019 Old DO Not Use [facility] Results neg./ BV+ 1 Winder Fixer W/RFX HPV HR Chlamydia/N 01/27/2019 Old DO Not Use [facility] CT,Rna,Tma,Uroge NOT DETECTED Not Detected 2 Gonorroeae Rna nital Tma Urogenit GC Rna,Tma,Urogen NOT DETECTED Not Detected 3 Herpes Simplex Virus 01/27/2019 Old DO Not Use [facility] Source NOT GIVEN-NOT GI <SEE 4 Culture W/RFX Type NOTE> HSV Culture NOT ISOLATED Not Isolated Wet Prep.... 01/27/2019 [facility] WBC Smear 0 Clue Cells Vag Fluid Wet Prep many Priyanka Wet Prep few Lactobacillus Wet Prep few Whiff Wet Prep neg. Bacteria Wet Prep n/a PH Wet Prep 7.5 Misc Other Test no trich seen Laboratory test finding 01/27/2019 [facility] Test Urine..... neg 1 GYNECOLOGICAL CYTOLOGY REPORT Thinprep TIS PAP w/rfx to HPV E6/E7 REPORT STATUS: FINAL CLINICAL INFORMATION: Routine exam LMP: [id number] SLIDES / SOURCE: 2 / Information not provided STATEMENT OF ADEQUACY: Satisfactory for evaluation. Endocervical/transformation zone component present. INTERPRETATION/RESULT: Negative for intraepithelial lesion or malignancy. Shift in vaginal vivienne suggestive of bacterial vaginosis. COMMENT: This case could not be evaluated with computer assisted technology. The slide was manually screened according to routine procedures. MEAT CARVER: LEXI GRANDE(ASCP) For informational Purposes: All cytology specimens are processed and screened at [facility]. [address] [place] [id number] The Pap is a screening test for cervical cancer. It is not a diagnostic test and is subject to false negative and false positive results. It is most reliable when a satisfactory sample, regularly obtained, is submitted with relevant clinical findings and history, and when the Pap result is evaluated along with historic and current clinical information. 2 This test was performed using the APTIMA COMBO2(R) Assay (GEN-PROBE(R). The analytical performance characteristics of this assay, when used to test SurePath(R) specimens have been determined by [facility]. 3 This test was performed using the APTIMA COMBO2(R) Assay (GEN-PROBE(R). The analytical performance characteristics of this assay, when used to test SurePath(R) specimens have been determined by [facility]. 4 NOT GIVEN-NOT GIVEN Procedures Date Code Description Status 02/11/2019 05120 Insert Intrauterine Device Completed Medical Devices Description No Information Available Encounters Type Date Location Provider Dx Diagnosis Office Visit 06/15/2019 12:00p BAYLEE Zamora NP N76.0 Acute vaginitis Z30.431 Encounter for routine checking of intrauterine contracep dev N63.22 Unspecified lump in the left breast, upper inner quadrant Z11.3 Encntr screen for infections w sexl mode of transmiss Office Visit 01/27/2019 1:00p BAYLEE Zamora NP Z30.012 Encounter for prescription of emergency contraception Z30.41 Encounter for surveillance of contraceptive pills N63.22 Unspecified lump in the left breast, upper inner quadrant N76.0 Acute vaginitis Z32.02 Encounter for test, result negative Z11.3 Encntr screen for infections w sexl mode of transmiss R21 Rash and other nonspecific skin eruption Z12.4 Encounter for screening for malignant neoplasm of cervix Z13.9 Encounter for screening, unspecified Assessments Date Code Description Provider 06/15/2019 N76.0 Acute vaginitis Melanie Zamora NP 06/15/2019 Z30.431 Encounter for routine checking of intrauterine Melanie Zamora NP contraceptive device 06/15/2019 N63.22 Unspecified lump in the left breast, upper Melanie Zamora NP inner quadrant 06/15/2019 Z11.3 Encounter for screening for infections with a Melanie Zamora NP predominantly sexual mode of transmission 02/11/2019 Z30.430 Encounter for insertion of intrauterine Melanie Zamora NP contraceptive device 02/11/2019 Z32.02 Encounter for test, result negative Melanie Zamora NP 01/27/2019 Z30.012 Encounter for prescription of emergency Melanie Zamora NP contraception 01/27/2019 Z30.41 Encounter for surveillance of contraceptive Melanie Zamora NP pills 01/27/2019 N63.22 Unspecified lump in the left breast, upper Melanie Zamora NP inner quadrant 01/27/2019 N76.0 Acute vaginitis Melanie Zamora NP 01/27/2019 Z32.02 Encounter for test, result negative Melanie Zamora NP 01/27/2019 Z11.3 Encounter for screening for infections with a Melanie Zamora NP predominantly 01/27/2019 R21 Rash and other nonspecific skin eruption Melanie Zamora NP 01/27/2019 Z12.4 Encounter for screening for malignant neoplasm Melanie Zamora NP of cervix 01/27/2019 Z13.9 Encounter for screening, unspecified Melanie Zamora NP Plan of Treatment 06/15/2019 - Melanie Zamora NPN76.0 Acute vaginitisNew Medication: Metronidazole 500 mg - one tab by mouth twice daily x 7 days no etohComments:+ whiff test and multiple clue cells on wet prep. Rx metronidazole- reviewed use of, side effects and precautions (including no etoh) with patient who states understanding. Instructed patient on pelvicrest x 2 weeks.Follow up:prn no improvement in flxpcymlW23.431 Encounter for routine checking of intrauterine contraceptive deviceComments:Patient is happy with her IUD.N63.22 Unspecified lump in the left breast, upper inner quadrantNew Xrays:US, Breast, Unilateral, Incl Axilla When Performed, Complete, Ordered: 06/15/19Comments:Left breast mass is unchanged since last visit. Recommend left breast ultrasound to evaluation. Scheduled at [facility] 06/23/19 at 8:30 am.Follow up:will call patient with breast ultrasound [id number] Encounter for screening for infections with a predominantly sexual mode of transmissionComments:Reviewed STD risks and prevention with patient. Patient states understanding. Condoms given to patient. Functional Status Description No Information Available Mental Status Description No Information Available Referrals Description No Information Available
[2019-08-10] MEDS ORDERED: Albuterol HFA INHALER* 8 gm MDI INH ONE (21:24)
[2019-08-10] MEDS ORDERED: Azithromycin TAB* 250 MG PO ONE (21:24)
[2019-08-10 21:33] VITALS: BP 124/78
== END 2019-08-10 21:47 | disposition home or self-care (01) ==
LOC: UCCORT 21:10
DX: J32.9 Chronic sinusitis, unspecified (principal); J20.9 Acute bronchitis, unspecified; Z88.8 Allergy status to other drugs, medicaments and biological substances; F17.210 Nicotine dependence, cigarettes, uncomplicated
CPT/HCPCS: 99212; A9270-GY; G0463

== ENCOUNTER 2019-08-20 20:26 | Emergency (ER) | payer OTHER ==
--- NOTE | 2019-08-20 20:27 | UC ---
Skin Complaint HPI - HPI Summary HPI Summary: 24 yo female presents with RIGHT side ?abscess. She tells me that for the last 5 days she has had a small boil appearing area to her right midaxillary area. Earlier today it popped it drained on it's own. She squeezed it and "a lot" of purulent matter was expressed. There is a small hole to the area and she is concerned for infection/MRSA. She has little pain to the site. No fevers. No history of DM or MRSA. - History of Current Complaint Time Seen by Provider: 08/20/19 20:26 Stated Complaint: SKIN COMPLAINT Hx Obtained From: Patient Hx Last Menstrual Period: 12/28/18 Onset/Duration: Gradual Onset Onset Severity: Moderate Current Severity: Mild Pain Intensity: 3 Pain Scale Used: 0-10 Numeric - Allergy/Home Medications Allergies/Adverse Reactions: Allergies Allergy/AdvReac Type Severity Reaction Status Date / Time benzonatate Allergy Severe Airway Verified 08/20/19 20:36 Obstruction PMH/Surg Hx/FS Hx/Imm Hx - Additional Past Medical History Additional PMH: NOne - Surgical History Surgical History: Yes Surgery Procedure, Year, and Place: hernia repair - Family History Known Family History: Positive: Hypertension, Diabetes - Social History Lives: With Family Alcohol Use: Rare Substance Use Type: None Smoking Status (MU): Current Every Day Smoker Type: Cigarettes Amount Used/How Often: 1/2 PPD Length of Time of Smoking/Using Tobacco: started age 14 Have You Smoked in the Last Year: Yes Household Exposure Type: Cigarettes - Immunization History Vaccination Up to Date: No Review of Systems All Other Systems Reviewed And Are Negative: No Constitutional: Positive: Negative Skin: Positive: Other - abscess right ribs Respiratory: Positive: Negative Cardiovascular: Positive: Negative Neurological: Positive: Negative Psychological: Positive: Negative Physical Exam - Summary Physical Exam Summary: GENERAL: NAD. WDWN. No pain distress. SKIN: RIGHT midaxillary line there is an area of faint erythema 2.0cm diameter with central 3mm diameter and 3mm depth hole. No purulent matter able to be expressed. Mild TTP. No drainage, bleeding, streaking, or induration. NECK: Supple. Nontender. No lymphadenopathy. CHEST: No accessory muscle use. Breathing comfortably and in no distress. CV: Pulses intact. Cap refill <2seconds NEURO: Alert. PSYCH: Age appropriate behavior. Triage Information Reviewed: Yes Vital Signs: Vital Signs: Temp Pulse Resp BP Pulse Ox 98.9 F 77 16 138/74 100 08/20/19 20:32 08/20/19 20:32 08/20/19 20:32 08/20/19 20:32 08/20/19 20:32 Vital Signs Reviewed: Yes Course/Dx - Course Course Of Treatment: Suspect abscess that expressed and pt manually expelled more purulent matter. No matter able to be expressed on exam. Culture obtained. I suspect this was a simple boil/abscess that, now drained, will heal well without dressing changes alone. Area bandaged with telfa. Advised to change dressing daily. Suspect she will not require antibiotics unless MRSA positive. - Diagnoses Provider Diagnosis: Abscess Discharge ED - Sign-Out/Discharge Documenting (check all that apply): Patient Departure All imaging exams completed and their final reports reviewed: No Studies - Discharge Plan Condition: Stable Disposition: HOME Patient Education Materials: Abscess (ED) Referrals: No Primary Care Phys,NOPCP [Primary Care Provider] - Additional Instructions: If you develop a fever, shortness of breath, chest pain, new or worsening symptoms - please call your PCP or go to the ED immediately. It appears you had a small abscess/boil underneath the skin that drained very well. This is usually enough to rid the infection and it should heal well without medication. We have taken a culture of the area to test for MRSA - if it is positive for MRSA, you will likely need antibiotics. If it is not MRSA and the area is healing well, there is no treatment necessary. Please change the dressing daily until well healed (likely 4-5 days) - Billing Disposition and Condition Condition: STABLE Disposition: Home
[2019-08-20 20:36] VITALS: BP 138/74
== END 2019-08-20 20:48 | disposition home or self-care (01) ==
LOC: UCCORT 20:26
DX: L02.818 Cutaneous abscess of other sites (principal); F17.210 Nicotine dependence, cigarettes, uncomplicated; Z88.8 Allergy status to other drugs, medicaments and biological substances
CPT/HCPCS: 87070; 87077; 87186; 87205; 99212; G0463